=== PATIENT | female | born 1960 | race Caucasian/White ===

== ENCOUNTER 2020-10-04 09:46 | Emergency (ER) | payer BC ==
--- NOTE | 2020-10-04 10:23 | RAD REPORT ---
EXAM DESCRIPTION: RAD - Chest Single View - 10/04/2020 10:11 am CLINICAL HISTORY: CHEST PAIN Chest pain. COMPARISON: CHEST SINGLE VIEW dated 08/24/2010; CHEST SINGLE VIEW dated 04/03/2010; CHEST SINGLE VIEW dated 04/02/2010; CHEST SINGLE VIEW dated 03/31/2010 FINDINGS: Portable technique limits examination quality. Mild interstitial pulmonary edema is seen. The heart is normal in size. Right axillary consuelo dissecti on clips. IMPRESSION: Mild interstitial pulmonary edema.
--- NOTE | 2020-10-04 10:42 | RAD REPORT ---
EXAM DESCRIPTION: CT - Angio Aorta For Dissection - 10/04/2020 10:18 am CLINICAL HISTORY: Chest pain radiating to the back. scapular pain;Chest pain COMPARISON: PET CTSKULL THIGH dated 03/21/2010; Thorax W/ Con dated 09/23/2016; Brain W/Wo Cont dated 10/30/2016 TECHNIQUE: CT angiography of the aorta was performed with MIPs. All CT scans are performed using dose optimization technique as appropriate and may include automated exposure control or mA/KV adjustment according to patient size. FINDINGS: A left aortic arch is present with normal branching pattern of the great vessels.There is crescentic intermediate density seen involving the descending thoracic aorta to the level of the diap hragm. This is more confluent and extensive than typically seen with mural thrombus and is suspected to represent a thrombosed dissection. This is also noted to be a new finding since the 2017 comparati ve study. No abdominal aortic aneurysm or dissection seen. No significant stenosis at the origin of t he visceral arteries are renal arteries. No evidence of pulmonary embolism. Mild diffuse COPD is present. Linear atelectasis is present in both lung bases. Postsurgical changes are seen right upper lung. The liver demonstrates no focal mass or biliary dilatation.The spleen, pancreas, kidneys are within n ormal limits. Right adrenal mass measuring 17 mm noted, slightly increased since 2017 at which time i t measured 13 mm. No left adrenal lesion. No bowel obstruction, free fluid or abscess.Sigmoid diverticulosis is present without diverticulitis. No pathologic enlarged lymphadenopathy identified.The appendix is not identified as a discrete struct ure, however, no secondary findings of appendicitis are identified. No fracture or worrisome bone lesion seen. 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 There is no evidence of aortic flow escalera itation seen.
[2020-10-04 10:44] LABS: Absolute Lymphocytes (CBC) 3.5 K/uL (0.7-4.9); Hematocrit 43.5 % (36.0-45.0); Lymphocytes % 27.8 % (15.3-44.8); MPV 9.3 fL (7.6-11.3); RBC Red Blood Cell Count 4.79 M/uL (3.86-4.86)
[2020-10-04 10:45] LABS: Protime INR 0.95
[2020-10-04 11:02] LABS: ALT/SGPT 33 U/L (12-78); AST/SGOT 21 U/L (15-37); Albumin 3.8 g/dL (3.4-5.0); Alkaline Phosphatase 180 U/L (45-117); BUN Blood Urea Nitrogen 10 mg/dL (7-18); Bicarbonate 25 mmol/L (21-32); Bilirubin Direct < 0.1 mg/dL (0-0.2); Bilirubin Total 0.3 mg/dL (0.2-1.0); Glucose Level 140 mg/dL (74-106); NT PRO-BNP 145 pg/mL (<125); Potassium 3.9 mmol/L (3.5-5.1); Protein, Total 7.8 g/dL (6.4-8.2); Sodium Level 139 mmol/L (136-145); Troponin (Emerg Dept Use Only) < 0.02 ng/mL (0.0-0.045)
[2020-10-04] MEDS ORDERED: FENTANYL CITR 100 MCG/2 ML ONE (11:10)
[2020-10-04] MEDS ORDERED: LABETALOL 20 MG/4ML SYRINGE IV ONE ×3 (11:11→12:30)
--- NOTE | 2020-10-04 11:11 | EDPHYS ---
Physician Documentation [facility] Name: Ynes Crowe Age: 59 yrs Sex: Female : 1960 Arrival Date: 10/04/2020 Time: 09:52 Bed 20 Private MD: ED Physician Javid Schilling HPI: 10/04 09:55 This 59 yrs old Female presents to ER via Unassigned with complaints of chest rn pain, back pain. 09:55 The patient or guardian reports chest pain that is located primarily in the substernal rn area. Onset: just prior to arrival. The pain radiates to back. Associated signs and symptoms: Pertinent positives: diaphoresis, Pertinent negatives: abdominal pain, dizziness, headache, lower extremity pain, lower extremity swelling, palpitations, recent travel, shortness of breath, syncope, vomiting. The chest pain is described as a pressure, squeezing. Duration: The patient or guardian reports a single episode, that is still ongoing. Modifying factors: The symptoms are alleviated by narcotic pain medication, Fentanyl. the symptoms are aggravated by nothing. Severity of pain: At its worst the pain was severe in the emergency department the pain has improved. The patient has not experienced similar symptoms in the past. The patient has not recently seen a physician. Reports mid scapular back pain, some chest pain, began suddenly at home, feels like "someone is squeezing me from the inside". No trauma. No fever. felt fine when woke up. NO known cardiac problems. No abd pain. NO focal neuro complaints. Given aspirin/nitro/fentanyl by EMS with some improvement, states feels much better. No known hx of DVT/pE. . Historical: - Allergies: 10:01 Latex, Natural Rubber; jd3 - Home Meds: 10:01 None [Active]; jd3 - PMHx: 10:01 lung CA; jd3 - PSHx: 10:01 lung sx; jd3 - Immunization history:: Adult Immunizations up to date, Client reports receiving the 2nd dose of the Covid vaccine. - Social history:: Smoking status: Patient/guardian denies using tobacco, but has a distant history of tobacco abuse. - Family history:: not pertinent. - Hospitalizations: : No recent hospitalization is reported. ROS: 09:55 Constitutional: Negative for fever, chills, and weight loss, Eyes: Negative for injury, rn pain, redness, and discharge, Neck: Negative for injury, pain, and swelling, Cardiovascular: Negative for palpitations, and edema, Respiratory: Negative for shortness of breath, cough, wheezing, and pleuritic chest pain, Abdomen/GI: Negative for abdominal pain, nausea, vomiting, diarrhea, and constipation, Back: + mid upper back pain : Negative for injury, bleeding, discharge, and swelling, MS/Extremity: Negative for injury and deformity, Skin: Negative for injury, rash, and discoloration, Neuro: Negative for headache, weakness, numbness, tingling, and seizure. Exam: 09:55 Constitutional: This is a well developed, well nourished patient who is awake, alert, rn and in no acute distress. Head/Face: Normocephalic, atraumatic. Neck: Trachea midline, no masses palpated, and no cervical lymphadenopathy. Supple, full range of motion without nuchal rigidity, or vertebral point tenderness. No Meningismus. Cardiovascular: Regular rate and rhythm. No pulse deficits. Respiratory: No increased work of breathing, no retractions or nasal flaring. Abdomen/GI: soft, non-tender Back: No spinal tenderness. No costovertebral tenderness. Full range of motion. Skin: Warm, dry with normal turgor. Normal color with no rashes, no lesions, and no evidence of cellulitis. MS/ Extremity: Pulses equal, no cyanosis. Neurovascular intact. Full, normal range of motion. Equal circumference. Neuro: Awake and alert, GCS 15, oriented to person, place, time, and situation. Cranial nerves II-XII grossly intact. Motor strength 5/5 in all extremities. Sensory grossly intact. Vital Signs: 10:01 BP 166 / 95; Pulse 106; Resp 18 S; Temp 98.3(O); Pulse Ox 90% on R/A; Weight 87.09 kg jd3 (R); Height 5 ft. 7 in. (170.18 cm) (R); Pain 5/10; 10:01 Pulse Ox 94% on 2 lpm NC; jd3 11:05 BP 173 / 98; Pulse 83; Pulse Ox 90% on 2 lpm NC; Pain 8/10; ap3 11:31 BP 167 / 94; Pulse 80; Pulse Ox 95% on R/A; Pain 5/10; ap3 12:05 BP 166 / 89; Pulse 87; Resp 20; Pulse Ox 95% on R/A; Pain 5/10; ap3 12:30 BP 168 / 91 (auto/); Pulse 82; Resp 18; Pulse Ox 100% 2 lpm ; ap3 10:01 Body Mass Index 30.07 (87.09 kg, 170.18 cm) jd3 MDM: 09:52 Patient medically screened. rn 10:55 ED course: Pt with descending thoracic aortic dissection, BP increased recently, will rn dose with labetalol for BP and HR control, more pain meds ordered and given, arranging transfer to [facility] for ICU care and medical management. . 11:08 Differential diagnosis: acute myocardial infarction, acute pericarditis, anxiety, rn coronary artery disease thoracic aortic disection. The patient was not given aspirin in the Emergency Department. Administered by EMS. Data reviewed: vital signs, nurses notes, lab test result(s), EKG, radiologic studies, CT scan, plain films, and as a result, I will admit patient. Counseling: I had a detailed discussion with the patient and/or guardian regarding: the historical points, exam findings, and any diagnostic results supporting the discharge/admit diagnosis, lab results, radiology results, the need for further work-up and treatment in the hospital. Response to treatment: the patient's symptoms have mildly improved after treatment, and as a result, I will admit patient. Admission orders: after a detailed discussion of the patient's condition and case, the admit orders are written by me. ED course: Accepted for tranfer to [facility] CVICU. 11:21 ED course: BP 155/93, HR 84, another 5mg labetalol ordered. . rn 10/04 09:54 Order name: Basic Metabolic Panel rn 10/04 09:54 Order name: CBC with Diff rn 10/04 09:54 Order name: LFT's rn 10/04 09:54 Order name: NT PRO-BNP rn 10/04 09:54 Order name: PT-INR rn 10/04 09:54 Order name: Troponin (emerg Dept Use Only) rn 10/04 10:38 Order name: CREATININE WHOLE BLOOD; Complete Time: 10:59 EDMS 10/04 10:49 Order name: CBC with Automated Diff; Complete Time: 10:59 [facility] 10/04 10:50 Order name: Protime (+INR); Complete Time: 10:59 EDOH 10/04 10:58 Order name: COVID-19 : Document "Date of Symptom Onset" if Symptomatic. bd 10/04 11:03 Order name: Basic Metabolic Panel EDOH 10/04 11:03 Order name: Liver (Hepatic) Function EDOH 10/04 11:03 Order name: Troponin (Emerg Dept Use Only) EDOH 10/04 11:03 Order name: NT PRO-BNP EDOH 10/04 09:54 Order name: XRAY Chest (1 view) 10/04 09:54 Order name: EKG; Complete Time: 09:55 rn 10/04 09:54 Order name: Cardiac monitoring; Complete Time: 09:55 rn 10/04 09:54 Order name: EKG - Nurse/Tech; Complete Time: 09:55 rn 10/04 09:54 Order name: IV Saline Lock; Complete Time: 09:55 rn 10/04 09:54 Order name: CT Aorta for Dissection 10/04 10:23 Order name: RAD; Complete Time: 10:59 EDOH 10/04 10:42 Order name: CT; Complete Time: 10:59 EDOH 10/04 11:10 Order name: CORONAVIRUS [facility] 10/04 11:49 Order name: SARS-COV-2 RT PCR EDOH 10/04 09:54 Order name: Labs collected and sent; Complete Time: 10:04 rn 10/04 09:54 Order name: O2 Per Protocol; Complete Time: 09:56 rn 10/04 09:54 Order name: O2 Sat Monitoring; Complete Time: 09:56 rn Administered Medications: 11:02 Drug: Labetalol 10 mg Route: IVP; Infused Over: 2 mins; Site: right antecubital; ap3 11:46 Follow up: Response: No adverse reaction ap3 11:02 Drug: fentaNYL (PF) 50 mcg Route: IVP; Site: right antecubital; ap3 11:46 Follow up: Response: No adverse reaction; RASS: Alert and Calm (0) ap3 11:26 Drug: Labetalol 5 mg Route: IVP; Site: right antecubital; ap3 11:45 Follow up: Response: No adverse reaction ap3 11:45 Drug: morphine 4 mg {Note: RASS: pt is awake and alert. .} Route: IVP; Site: right ap3 antecubital; 12:06 Follow up: Response: Pain is decreased ap3 12:16 Drug: Labetalol 5 mg Route: IVP; Site: right antecubital; ap3 12:30 Follow up: BP 168 / 91 Left Arm Auto; Pulse 82 bpm; Resp 18 bpm; Pulse Ox 100% 2 lpm; ap3 Response: No adverse reaction 12:36 Drug: Dilaudid (HYDROmorphone) 1 mg {Note: PT AWAKE AND ALERT.} Route: IVP; Site: right ap3 antecubital; 13:00 Follow up: Response: No adverse reaction; RASS: Alert and Calm (0) ap3 Disposition: 11:08 Critical Care:. rn Disposition: 10/04/20 11:10 Transfer ordered to [facility]. Diagnosis is Dissection of thoracic aorta. - Reason for transfer: Higher level of care. - Accepting physician is Dr. Way. - Condition is Fair. - Problem is new. - Symptoms have improved. Critical care time excluding procedures: 11:08 Critical care time: Bedside Care: 25 minutes, Consultation: 5 minutes. Total time: 30 rn minutes Signatures: Dispatcher [employer] EDMS Javid Schilling MD MD rn Davies, Jonathon, RN RN jd3 Prokisch, Amanda, RN RN ap3 Corrections: (The following items were deleted from the chart) 13:01 11:10 10/04/2020 11:10 Transfer ordered to [facility]. ap3 Diagnosis is Dissection of thoracic aorta. Reason for transfer: Higher level of care. Accepting physician is Dr. Way. Condition is Fair. Problem is new. Symptoms have improved. rn
--- NOTE | 2020-10-04 11:11 | ER ---
Nurse's Notes [facility] Name: Ynes Crowe Age: 59 yrs Sex: Female : 1960 Arrival Date: 10/04/2020 Time: 09:52 Bed 20 Private MD: Diagnosis: Dissection of thoracic aorta Presentation: 10/04 09:56 Chief complaint: EMS states: "upon our arrival the pt had audible cries of pain from jd3 the other room to her mid back with shortness of breath. we treated it as chest pain and did a 12 lead. gave 324 of aspirin, nitro, and a total of 100 mcg of fentanyl over the course of the ride to knock the pain from a 10/10 to a 5/10. pt's blood pressure was 200's systolics down to 140's systolics. 20 G to her right AC. pt reports feeling better after interventions.". Coronavirus screen: At this time, the client does not indicate any symptoms associated with coronavirus-19. Ebola Screen: Patient negative for fever greater than or equal to 101.5 degrees Fahrenheit, and additional compatible Ebola Virus Disease symptoms. Initial Sepsis Screen: Does the patient meet any 2 criteria? No. Patient's initial sepsis screen is negative. Does the patient have a suspected source of infection? No. Patient's initial sepsis screen is negative. Risk Assessment: Do you want to hurt yourself or someone else? Patient reports no desire to harm self or others. Onset of symptoms was October 04, 2020. 09:56 Method Of Arrival: EMS: [facility] jd3 09:56 Acuity: MARY 3 jd3 11:09 Acuity: MARY 2 ap3 Historical: - Allergies: 10:01 Latex, Natural Rubber; jd3 - Home Meds: 10:01 None [Active]; jd3 - PMHx: 10:01 lung CA; jd3 - PSHx: 10:01 lung sx; jd3 - Immunization history:: Adult Immunizations up to date, Client reports receiving the 2nd dose of the Covid vaccine. - Social history:: Smoking status: Patient/guardian denies using tobacco, but has a distant history of tobacco abuse. - Family history:: not pertinent. - Hospitalizations: : No recent hospitalization is reported. Screenin:11 Abuse screen: Denies threats or abuse. Nutritional screening: No deficits noted. ap3 Tuberculosis screening: No symptoms or risk factors identified. Fall Risk No fall in past 12 months (0 pts). No secondary diagnosis (0 pts). IV access (20 points). Ambulatory Aid- None/Bed Rest/Nurse Assist (0 pts). Gait- Normal/Bed Rest/Wheelchair (0 pts) Mental Status- Oriented to own ability (0 pts). Total Page Fall Scale indicates No Risk (0-24 pts). Assessment: 10:06 General: Appears uncomfortable, Behavior is calm, cooperative, appropriate for age. ap3 Pain: Complains of pain in thoracic area Pain currently is 5 out of 10 on a pain scale. Pain began suddenly this morning Current management is with medication administered by EMS. Neuro: Level of Consciousness is awake, alert, obeys commands, Oriented to person, place, time, situation. Cardiovascular: Capillary refill < 3 seconds. Respiratory: Airway is patent Respiratory effort is even, unlabored, Respiratory pattern is regular, symmetrical. GI: No signs and/or symptoms were reported involving the gastrointestinal system. : No signs and/or symptoms were reported regarding the genitourinary system. EENT: No signs and/or symptoms were reported regarding the EENT system. Derm: No signs and/or symptoms reported regarding the dermatologic system. Musculoskeletal: No signs and/or symptoms reported regarding the musculoskeletal system. 11:04 General: Appears uncomfortable, Behavior is cooperative, anxious. Pain: Complains of ap3 pain in thoracic area Pain currently is 8 out of 10 on a pain scale. Alleviated by medications, Noted to be restless, Also complains of nausea. 12:11 Reassessment: report given to [employer] [facility]. ap3 12:26 Reassessment: Reassessment: report given to [facility] receiving nurse. ap3 Vital Signs: 10:01 BP 166 / 95; Pulse 106; Resp 18 S; Temp 98.3(O); Pulse Ox 90% on R/A; Weight 87.09 kg jd3 (R); Height 5 ft. 7 in. (170.18 cm) (R); Pain 5/10; 10:01 Pulse Ox 94% on 2 lpm NC; jd3 11:05 BP 173 / 98; Pulse 83; Pulse Ox 90% on 2 lpm NC; Pain 8/10; ap3 11:31 BP 167 / 94; Pulse 80; Pulse Ox 95% on R/A; Pain 5/10; ap3 12:05 BP 166 / 89; Pulse 87; Resp 20; Pulse Ox 95% on R/A; Pain 5/10; ap3 12:30 BP 168 / 91 (auto/); Pulse 82; Resp 18; Pulse Ox 100% 2 lpm ; ap3 10:01 Body Mass Index 30.07 (87.09 kg, 170.18 cm) jd3 ED Course: 09:52 Patient arrived in ED. rn 09:52 Javid Schilling MD is Attending Physician. rn 09:54 Jeri Andres, NEGRITO is Primary Nurse. ap3 10:00 Triage completed. jd3 10:00 Maintain EMS IV. Dressing intact. Good blood return noted. Site clean \\T\\ dry. Gauge \\T\\ david 3 site: 20 G to the right AC. 10:02 Arm band placed on. jd3 10:03 Basic Metabolic Panel Sent. ap3 10:03 CBC with Diff Sent. ap3 10:03 LFT's Sent. ap3 10:03 NT PRO-BNP Sent. ap3 10:03 PT-INR Sent. ap3 10:04 Troponin (emerg Dept Use Only) Sent. ap3 10:05 X-ray at the bedside. ap3 10:11 Patient has correct armband on for positive identification. Allergy band placed. Bed in ap3 low position. Call light in reach. Side rails up X 1. Adult w/ patient. telemetry monitor on. Pulse ox on. NIBP on. Door closed. 11:09 Inserted saline lock: 20 gauge in left antecubital area, using aseptic technique. jd3 11:26 CORONAVIRUS Sent. ap3 12:58 Patient transferred, IV remains in place. ap3 12:58 No provider procedures requiring assistance completed. ap3 Administered Medications: 11:02 Drug: Labetalol 10 mg Route: IVP; Infused Over: 2 mins; Site: right antecubital; ap3 11:46 Follow up: Response: No adverse reaction ap3 11:02 Drug: fentaNYL (PF) 50 mcg Route: IVP; Site: right antecubital; ap3 11:46 Follow up: Response: No adverse reaction; RASS: Alert and Calm (0) ap3 11:26 Drug: Labetalol 5 mg Route: IVP; Site: right antecubital; ap3 11:45 Follow up: Response: No adverse reaction ap3 11:45 Drug: morphine 4 mg {Note: RASS: pt is awake and alert. .} Route: IVP; Site: right ap3 antecubital; 12:06 Follow up: Response: Pain is decreased ap3 12:16 Drug: Labetalol 5 mg Route: IVP; Site: right antecubital; ap3 12:30 Follow up: BP 168 / 91 Left Arm Auto; Pulse 82 bpm; Resp 18 bpm; Pulse Ox 100% 2 lpm; ap3 Response: No adverse reaction 12:36 Drug: Dilaudid (HYDROmorphone) 1 mg {Note: PT AWAKE AND ALERT.} Route: IVP; Site: right ap3 antecubital; 13:00 Follow up: Response: No adverse reaction; RASS: Alert and Calm (0) ap3 Outcome: 11:10 ER care complete, transfer ordered by . rn 12:57 Transferred by helicopter to [facility]. ap3 12:57 Condition: stable 12:57 Instructed on the need for transfer. 13:01 Patient left the ED. ap3 Signatures: Javid Schilling MD MD rn Davies, Jonathon, RN RN jd3 Prokisch, Amanda, RN RN ap3 Corrections: (The following items were deleted from the chart) 11:11 11:09 Maintain EMS IV. Dressing intact. Good blood return noted. Site clean \\T\\ dry. jd3 Gauge \\T\\ site: 20 G right AC. jd3 12:26 12:26 Reassessment: report given to life flight ap3 ap3 12:27 12:26 Reassessment: ap3 ap3 13:02 12:57 critical ap3 ap3
[2020-10-04] MEDS ORDERED: MORPHINE 4 MG/ML SYR ONE (12:00)
[2020-10-04] MEDS ORDERED: HYDROMORPHONE HCL 1 MG/ML INJ ONE (12:52)
[2020-10-04 13:27] VITALS: TEMP 98.3
[2020-10-04 13:32] VITALS: BP 168/91; O2SAT 100
--- NOTE | 2020-10-04 16:08 | EKG ---
Test Date: 2020-10-04 Test Time: 10:45:50 [employer]: ALP MEASUREMENT RESULTS: Intervals: Rate: 84 GA: 192 QRSD: 84 QT: 400 QTc: 472 [place]: P: 73 GA: 192 QRS: -13 T: 75 INTERPRETIVE STATEMENTS: Normal sinus rhythm Minimal voltage criteria for LVH, may be normal variant Cannot rule out Inferior infarct, age undetermined Abnormal ECG Compared to ECG 08/24/2010 15:42:02 Left ventricular hypertrophy now present Sinus tachycardia no longer present Myocardial infarct finding still present Electronically Signed On 10-04-20 16:06:48 CDT by Shahid Johnson
== END 2020-10-04 13:01 | disposition short-term general hospital (02) ==
LOC: ER 09:46
DX: I71.01 Dissection of thoracic aorta (principal); Z20.822 Contact with and (suspected) exposure to COVID-19; Z85.118 Personal history of other malignant neoplasm of bronchus and lung; Z91.040 Latex allergy status; Z91.048 Other nonmedicinal substance allergy status
CPT/HCPCS: 93005; 85025; 80048; 36415; 85610; 82565; 80076; 84484; 83880; 71275; 74175; 71045; U0003; Q9967; J3010; J1170; 96374; 96375; 99285

== ENCOUNTER 2022-01-17 13:01 | Day surgery (SDC) | payer BC ==
--- NOTE | 2022-01-16 11:52 | RAD REPORT ---
EXAM DESCRIPTION: Kaleb Todd And Mikael (2 Views)01/16/2022 11:43 am CLINICAL HISTORY: Preop/hypertension COMPARISON: 2020 FINDINGS: The lungs appear clear of acute infiltrate. The heart is normal size Aortic stent in place IMPRESSION: No acute abnormalities displayed
[2022-01-16 11:53] LABS: Absolute Lymphocytes (CBC) 3.4 K/uL (0.7-4.9); Hematocrit 43.8 % (36.0-45.0); Lymphocytes % 27.1 % (15.3-44.8); MCV 93.9 fL (80-100); MPV 8.8 fL (7.6-11.3); RBC Red Blood Cell Count 4.66 M/uL (3.86-4.86)
[2022-01-16 11:57] LABS: Protime INR 0.95
[2022-01-16 12:07] LABS: SARS-CoV-2 Antigen Rapid Res Negative (Negative)
[~2022-01-17 13:01] MED LIST: HEPA 1000U/500MLS 2,000 UNIT/1,000 ML BAG IV ONE
[2022-01-17] MEDS ORDERED: NA CHLORIDE 0.9% 500 ML ONE (13:29)
[2022-01-17] MEDS ORDERED: FENTANYL CITR 100 MCG/2 ML ONE (15:33)
[2022-01-17] MEDS ORDERED: MIDAZOLAM HCL 2 MG/2 ML INJ ONE (15:33)
[2022-01-17] MEDS ORDERED: VERAPAMIL HCL 10 MG/4 ML VIAL IV ONE (15:33)
[2022-01-17] MEDS ORDERED: HEPARIN 5000 UNIT/ML 1 ML VIAL ONE (15:33)
[2022-01-17] MEDS ORDERED: ATROPINE SULF 1 MG/10 ML SYR IV ONE (15:34)
[2022-01-17] MEDS ORDERED: HEPARIN 10,000 UNIT/10 ML VIAL IV ONE (15:34)
[2022-01-17] MEDS ORDERED: NITROGLYCERIN 100 MCG/ML SYR (for cath lab use only) IV ONE (15:34)
[2022-01-17 17:32] VITALS: BP 134/77; O2SAT 97
--- NOTE | 2022-01-18 03:51 | OP ---
Date of Procedure: 01/17/2022 Surgeon: MARIAMA FREDERICK Procedure Performed: Peripheral aortogram with runoff and selective peripheral angiogram. Indication: Severe pain, lower extremities with known history of acute peripheral vascular disease. Access: Right radial artery, 6-Tuvaluan, closed with TR band. Complications: None. Bleeding: Less than 10 mL. Anesthesia: Total sedation time was 35 minutes, used fentanyl and Versed. Description Of Procedure: After risks, benefits, and alternatives were explained, the patient agreed to procedure and signed informed consent. [facility] prepped and draped in usual sterile fashion. Then, I accessed right radial artery using pedi atric micropuncture kit, placed a 6-Tuvaluan Slender sheath and took 5-Tuvaluan long pigtail catheter int o the distal aorta. I performed distal aortogram runoff and then did selective peripheral angiogram of the right side, and then removed the catheter and the sheath, placed TR band with good hemostasis. Findings: 1.Distal aorta is patent. 2.Right common iliac, external and internal iliac arteries are all patent. The right femoral artery and the right SFA are patent. Distal SFA on the right has about 20% stenosis in multiple areas. Th en, 3-vessel runoff; they are patent with mild diffuse disease. 3.Left common iliac has mid segment 70% stenosis, but it is a large vessel, so the lumen is still la rge. Then, the common femoral artery on the left is widely patent. Then, the SFA has multiple areas of 20% to 30% stenosis and 3-vessel runoff below the knee, also with mild diffuse disease; however, there is a good blood flow all the way to the toes. 4.Bilateral profunda are patent. Conclusion: Moderate left common iliac artery stenosis as outlined above. Otherwise, mild periphera l vascular disease. Plan: Medical management for now and observe with serial ultrasounds. If it gets worse, then we jerome l plan for balloon angioplasty of left common iliac at a later time. SR/MODL Voice ID: [id number] Report ID: [id number]
== END 2022-01-17 17:47 | disposition home or self-care (01) ==
LOC: CCL 13:01
PROVIDERS: ATTEND Internal Medicine
DX: I70.203 Unspecified atherosclerosis of native arteries of extremities, bilateral legs (principal); I65.29 Occlusion and stenosis of unspecified carotid artery; I10 Essential (primary) hypertension; E78.5 Hyperlipidemia, unspecified; Z91.040 Latex allergy status; Z87.891 Personal history of nicotine dependence; Z79.82 Long term (current) use of aspirin; Z79.899 Other long term (current) drug therapy; Z20.822 Contact with and (suspected) exposure to COVID-19
CPT/HCPCS: 85025; 80048; 36415; 85610; 85730; 71046; 36200; 75630; 87811; C1893; J1644 ×2; J7040; J2250; J3010

== ENCOUNTER 2024-09-15 18:46 | Observation (INO) | payer BC ==
[2024-09-15] MEDS ORDERED: LEVALBUTEROL 1.25 MG/3 ML NEB ONE ×2 (19:26→22:43)
[2024-09-15 19:35] LABS: Absolute Basophils 0.1 K/uL (0-0.5); Absolute Eosinophils 0.4 K/uL (0-0.5); Absolute Lymphocytes (CBC) 2.6 K/uL (0.7-4.9); Absolute Monocytes 0.8 K/uL (0.1-1.3); Absolute Neutrophil 13.2 K/uL (1.8-8.0); Basophils % 0.9 % (0-1.3); Eosinophils % 2.1 % (0-4.4); Hematocrit 45.5 % (36.0-45.0); Hemoglobin 14.8 g/dL (12.0-15.0); MCH 30.5 pg (27.0-35.0); MCHC 32.5 g/dL (32.0-36.0); MCV 93.8 fL (80-100); MPV 8.3 fL (7.6-11.3); Monocytes % 4.6 % (3.3-12.3); Neutrophils % 77.4 % (41.7-73.7); Nucleated RBC Absolute Count 0.2 (0-0); Nucleated Red Blood Cells % 0.9 % (0-0); Platelets 246 thou/uL (152-406); RBC Red Blood Cell Count 4.85 M/uL (3.86-4.86); Red Cell Distribution Width 13.4 % (12.1-15.2)
[2024-09-15 19:39] LABS: PT Prothrombin Time 11.1 SECONDS (10-13.0); Protime INR 0.97
[2024-09-15 19:46] LABS: Albumin 3.7 g/dL (3.4-5.0); Albumin/Globulin Ratio 0.8 (1.1-1.8); Anion Gap 8.6 mEq/L (5.0-15.0); Bilirubin Total 0.3 mg/dL (0.2-1.0); Globulin 4.4 g/dL (2.3-3.5); Potassium 3.6 mEq/L (3.5-5.1); Protein, Total 8.1 g/dL (6.4-8.2)
[2024-09-15 19:54] LABS: Influenza A Ag Negative; Influenza B Ag Negative; SARS-CoV-2 Antigen Rapid Res Negative (Negative)
--- NOTE | 2024-09-15 21:17 | RAD REPORT ---
EXAMINATION: CTA CHEST PE CLINICAL INDICATION: Shortness of breath TECHNIQUE: 100 cc 370 Isovue administered intravenously. This examination was performed according to an angiographic protocol with 3D post-processing. This involves 3D reconstructions, MIPs, volume rendered images and/or shaded surface rendering. One or more of the following dose reduction techniqu es were used: Automated exposure control, adjustment of the mA and/or kV according to patient size, and/or iterative reconstruction. Unless otherwise specified, incidental findings do not require dedic ated imaging follow-up. [id number]. COMPARISON: 2013 CT abdomen and [address] FINDINGS: A pulmonary embolus is not seen. An aortic aneurysm not noted. A stent has been placed into the aortic arch/descending thoracic aorta. No dissection visualized. No pleural effusion. No pericardial effusion. Small lung nodules unchanged likely benign. Right adrenal nodules unchanged likely adenomas. No follow-up recommended IMPRESSION: No evidence of a pulmonary embolism
--- NOTE | 2024-09-15 21:18 | RAD REPORT ---
Procedure: Chest Single View HISTORY: Cough COMPARISON: 2021 FINDINGS: The lungs appear clear of acute infiltrate. No significant pleural effusion noted. The heart is borderline enlarged.. Thoracic aortic stent in place. IMPRESSION: No acute abnormality is displayed.
--- NOTE | 2024-09-15 21:48 | EDPHYS ---
Physician Documentation [facility] Name: Ynes Crowe Age: 63 yrs Sex: Female : 1960 Arrival Date: 09/15/2024 Time: 18:46 Bed 13 Private MD: ED Physician Rasta Guzman HPI: 09/15 19:46 This 63 yrs old Female presents to ER via EMS with complaints of shortness of breath. rn 19:46 The patient has shortness of breath at rest, with light activity. Onset: The rn symptoms/episode began/occurred yesterday. Duration: The symptoms are intermittent. The patient's shortness of breath is aggravated by coughing, light activity. Severity of symptoms: At their worst the symptoms were moderate in the emergency department the symptoms are unchanged. The patient has not experienced similar symptoms in the past. Patient reports cough, productive, associated with shortness of breath and wheezing. Reports inhaler at home helping but not resolving symptoms. Denies fever or chills. Given steroids and albuterol by EMS with improvement of symptoms. No history of DVT or PE. A few years ago had aortic dissection and status post stent without complications. Denies any chest pain. No abdominal pain or vomiting.. Historical: - Allergies: 18:57 Latex; ld1 - PMHx: 18:57 Lung CA; ld1 - Immunization history:: Adult Immunizations up to date. - Infectious Disease History:: Denies. - Social history:: Smoking status: unknown. - Family history:: not pertinent. - Hospitalizations: : No recent hospitalization is reported. ROS: 19:46 Constitutional: Negative for fever, chills, and weight loss, Cardiovascular: Negative rn for chest pain, palpitations, and edema, Respiratory: Positive for cough and shortness of breath Abdomen/GI: Negative for abdominal pain, nausea, vomiting, diarrhea, and constipation, MS/Extremity: Negative for injury and deformity, Neuro: Negative for headache, weakness, numbness, tingling, and seizure, Exam: 19:46 Constitutional: This is a well developed, well nourished patient who is awake, alert, rn and in no acute distress. Cardiovascular: Tachycardic, regular. No pulse deficits. Respiratory: Mild tachypnea, diffuse wheezing, no retractions, diminished at bases Abdomen/GI: Soft, non-tender MS/ Extremity: Pulses equal, no cyanosis. Neuro: Awake and alert, GCS 15 19:48 ECG was reviewed by the Attending Physician. rn Vital Signs: 19:05 Pulse 107; Resp 20; Temp 98.5(O); Pulse Ox 94% on R/A; kd3 19:30 BP 121 / 84; Pulse 102; Resp 20; Pulse Ox 93% on R/A; kd3 20:02 BP 127 / 104; Pulse 111; Resp 21; Pulse Ox 94% on R/A; kd3 20:51 BP 114 / 94; Pulse 101; Resp 19; Pulse Ox 93% on R/A; kd3 21:15 BP 128 / 108; Pulse 107; Resp 21; Pulse Ox 93% on R/A; kd3 22:49 BP 142 / 104; Pulse 104; Resp 20 S; Pulse Ox 95% on R/A; kd3 23:23 BP 117 / 90; Pulse 117; Resp 19; Pulse Ox 94% on R/A; kd3 MDM: 18:57 Medical Screening Exam initiated rn 21:48 Differential diagnosis: Pneumonia, COPD. Antibiotic administration: Levaquin given. rt Data reviewed: vital signs, nurses notes, lab test result(s), EKG, radiologic studies. Consideration of Admission/Observation Patient was admitted/placed on observation. Management of patient was discussed with the following: Hospitalist: Agrees to admit. I considered the following discharge prescriptions or medication management in the emergency department Medications were administered in the Emergency Department. See MAR. Independent interpretation of the following test(s) in the Emergency Department X-Ray: My interpretation is Right lower lobe pneumonia seen on interpretation of x-ray images. Care significantly affected by the following chronic conditions: Chronic Obstructive Pulmonary Disease. Counseling: I had a detailed discussion with the patient and/or guardian regarding the historical points, exam findings, and any diagnostic results supporting the discharge/admit diagnosis, lab results, radiology results, the need for further work-up and treatment in the hospital. Response to treatment: the patient's symptoms have markedly improved after treatment. 09/15 19:10 Order name: Blood Culture Adult (2) rn 09/15 19:10 Order name: CBC with Diff; Complete Time: 20:08 rn 09/15 19:10 Order name: CMP; Complete Time: 20:08 rn 09/15 19:10 Order name: Lactate w/ 2H reflex if indic.; Complete Time: 20:08 rn 09/15 19:10 Order name: Protime (+inr); Complete Time: 20:08 rn 09/15 19:10 Order name: Ptt, Activated; Complete Time: 20:08 rn 09/15 19:10 Order name: COVID-19 Ag + Flu A+B Ag; Complete Time: 20:08 rn 09/15 23:41 Order name: Lactate w/ 2H reflex if indic.; Complete Time: 07:55 EDMS 09/15 23:41 Order name: Urinalysis w/ reflexes EDMS 09/15 23:41 Order name: CBC with Automated Diff EDMS 09/15 23:41 Order name: CBC with Automated Diff; Complete Time: 07:55 EDMS 09/15 23:41 Order name: Comprehensive Metabolic Panel EDMS 09/15 23:41 Order name: Comprehensive Metabolic Panel; Complete Time: 07:55 EDMS 09/15 23:43 Order name: Procalcitonin; Complete Time: 07:55 EDMS 09/15 23:43 Order name: C-Reactive Protein; Complete Time: 07:55 EDMS 09/16 04:08 Order name: Manual Differential; Complete Time: 07:55 EDMS 09/16 05:37 Order name: Lactate w/ 2H reflex if indic.; Complete Time: 07:55 EDMS 09/15 19:10 Order name: Chest Single View XRAY; Complete Time: 21:18 rn 02 19:10 Order name: CT Chest For PE Angio; Complete Time: 21:18 rn 09/15 19:10 Order name: EKG; Complete Time: 19:10 rn 09/15 23:41 Order name: CONS Physician Consult EDMN 09/15 19:10 Order name: Accucheck; Complete Time: 20:02 rn 09/15 19:10 Order name: Cardiac monitoring; Complete Time: 19:29 rn 09/15 19:10 Order name: EKG - Nurse/Tech; Complete Time: 19:30 rn 09/15 19:10 Order name: IV Saline Lock - Large Bore; Complete Time: 19:30 rn 02 19:10 Order name: Labs collected and sent; Complete Time: 19:30 rn 09/15 19:10 Order name: O2 Per Protocol; Complete Time: 19:30 rn 09/15 19:10 Order name: O2 Sat Monitoring; Complete Time: 19:30 rn 09/15 19:10 Order name: Vital Signs; Complete Time: 19:30 rn EC:48 Rate is 102 beats/min. Rhythm is regular. QRS [place] is Normal. AR interval is normal. rn QRS interval is normal. QT interval is normal. No Q waves. T waves are Normal. No ST changes noted. Clinical impression: Sinus tachycardia. Interpreted by me. Reviewed by me. Administered Medications: 19:31 Drug: Levalbuterol Inhalation 1.25 mg Inhalation once Route: Inhalation; jb4 22:49 Follow up: Response: No adverse reaction kd3 22:49 Drug: Levalbuterol Inhalation 1.25 mg Inhalation once Route: Inhalation; kd3 09/16 02:00 Follow up: Response: No adverse reaction ha1 09/15 22:49 Drug: LevaQUIN IVPB 750 mg IVPB once Route: IVPB; Site: left antecubital; kd3 09/16 02:00 Follow up: Response: No adverse reaction; IV Status: Completed infusion ha1 09/15 22:49 Drug: NS 0.9% IV 1000 ml IV at 1000 ml once; to be given as a bolus over 60 minutes kd3 Route: IV; Rate: 1000 ml; Site: left antecubital; 09/16 02:00 Follow up: Response: No adverse reaction; IV Status: Completed infusion ha1 Disposition: 09/15 21:48 Critical Care:. rt Disposition Summary: 09/15/24 21:48 Hospitalization Ordered Notes: Hospitalization Status: Inpatient Admission rt Provider: Prashant Hood rt Condition: Stable rt Problem: new rt Symptoms: have improved rt Bed/Room Type: Standard rt Location: Telemetry/MedSurg (Inpatient)(09/16/24 11:43) bc6 Room Assignment: [facility](09/16/24 11:43) [facility] Diagnosis - Lobar pneumonia, unspecified organism rt - Sepsis, unspecified organism rt Forms: - Medication Reconciliation Form rt - SBAR form rt - Leadership Thank You Letter rt Critical care time excluding procedures: 21:48 Critical care time: Bedside Care: 30 minutes, Consultation: 5 minutes. Total time: 35 rt minutes Signatures: Dispatcher [employer] EDMS Javid Schilling MD MD rn Bryson, James, RN RN jb4 Su Tijerina RN RN ld1 Suzanne Clark, RN RN kd3 Shu Pearce RN RN vc1 Rasta Guzman MD MD rt [place] [id number] Jami Roblero RN ha1 Corrections: (The following items were deleted from the chart) 09/16 00:14 09/15 21:48 Telemetry/MedSurg (Inpatient) rt 1 09/16 00:14 04 21:48 rt vc1 09/16 11:01 00:14 [facility] ER HOLD vc1 6 11:01 00:14 ERHOLD- vc1 6 11:14 11:01 Telemetry/MedSurg (Inpatient) 6 6 11:14 11:01 212 6 6 11:43 11:14 [facility] ER HOLD 6 6 11:43 11:14 [facility]6
--- NOTE | 2024-09-15 21:48 | ER ---
Nurse's Notes [facility] Name: Ynes Crowe Age: 63 yrs Sex: Female : 1960 Arrival Date: 09/15/2024 Time: 18:46 Bed 13 Private MD: Diagnosis: Lobar pneumonia, unspecified organism;Sepsis, unspecified organism Presentation: 09/15 19:05 Chief complaint: EMS states: Patient presents with SOB, chest tightness and cough with kd3 thick clear phlegm. PT has a history of lung cancer. PT received and A\T\ A tx and 125 of Solu Medrol in route with reported improvement. PT's VSS. Ebola Screen: No symptoms or risks identified at this time. Initial Sepsis Screen: Does the patient meet any 2 criteria? No. Patient's initial sepsis screen is negative. Does the patient have a suspected source of infection? No. Patient's initial sepsis screen is negative. Risk Assessment: Do you want to hurt yourself or someone else? Patient reports no desire to harm self or others. Onset of symptoms was September 15, 2024. 19:05 Method Of Arrival: EMS: [facility] kd3 19:05 Acuity: MARY 3 kd3 09/16 04:17 Coronavirus screen: Client denies travel out of the [place] in the last 14 days. ha1 Triage Assessment: 09/15 19:05 General: Appears uncomfortable, Behavior is calm, cooperative. Neuro: Level of kd3 Consciousness is awake, alert, obeys commands, Oriented to person, place, time, situation. Respiratory: Airway is patent Trachea midline Respiratory effort is even, unlabored. Historical: - Allergies: 18:57 Latex; ld1 - PMHx: 18:57 Lung CA; ld1 - Immunization history:: Adult Immunizations up to date. - Infectious Disease History:: Denies. - Social history:: Smoking status: unknown. - Family history:: not pertinent. - Hospitalizations: : No recent hospitalization is reported. Screenin:31 [facility] ED Fall Risk Assessment (Adult) History of falling in the last 3 months, kd3 including since admission No falls in past 3 months (0 pts) Confusion or Disorientation No (0 pts) Intoxicated or Sedated No (0 pts) Impaired Gait No (0 pts) Mobility Assist Device Used No (0 pt) Altered Elimination No (0 pt) Score/Fall Risk Level 0 - 2 = Low Risk Oriented to surroundings. Abuse screen: Denies threats or abuse. Denies injuries from another. Nutritional screening: No deficits noted. Tuberculosis screening: No symptoms or risk factors identified. Assessment: 19:49 General: Appears uncomfortable, Behavior is calm, cooperative. Pain: Denies pain. kd3 Neuro: Level of Consciousness is awake, alert, obeys commands, Oriented to person, place, time, situation. Cardiovascular: Capillary refill < 3 seconds Patient's skin is warm and dry. Vital Signs: 19:05 Pulse 107; Resp 20; Temp 98.5(O); Pulse Ox 94% on R/A; kd3 19:30 BP 121 / 84; Pulse 102; Resp 20; Pulse Ox 93% on R/A; kd3 20:02 BP 127 / 104; Pulse 111; Resp 21; Pulse Ox 94% on R/A; kd3 20:51 BP 114 / 94; Pulse 101; Resp 19; Pulse Ox 93% on R/A; kd3 21:15 BP 128 / 108; Pulse 107; Resp 21; Pulse Ox 93% on R/A; kd3 22:49 BP 142 / 104; Pulse 104; Resp 20 S; Pulse Ox 95% on R/A; kd3 23:23 BP 117 / 90; Pulse 117; Resp 19; Pulse Ox 94% on R/A; kd3 ED Course: 18:57 Patient arrived in ED. ld1 18:57 Javid Schilling MD is Attending Physician. rn 19:03 Suzanne Clark RN is Primary Nurse. kd3 19:05 Arm band placed on. kd3 19:07 Triage completed. kd3 19:30 CBC with Diff Sent. kd3 19:30 CMP Sent. kd3 19:30 Lactate w/ 2H reflex if indic. Sent. kd3 19:30 Protime (+inr) Sent. kd3 19:30 Ptt, Activated Sent. kd3 19:30 COVID-19 Ag + Flu A+B Ag Sent. kd3 19:31 Patient has correct armband on for positive identification. kd3 19:42 Chest Single View XRAY In Process Unspecified. EDMS 19:49 Blood Culture Adult (2) Sent. kd3 19:49 Inserted saline lock: 20 gauge in left antecubital area, using aseptic technique. Blood kd3 collected. Flushed with 10 mL NS. 20:12 Attending Physician role handed off by Javid Schilling MD rt 20:12 Rasta Guzman MD is Attending Physician. rt 21:08 CT Chest For PE Angio In Process Unspecified. EDMS 21:47 Prashant Hood MD is Hospitalizing Provider. rt 09/16 02:00 Provided Education on: plan of care . ha1 02:00 No provider procedures requiring assistance completed. ha1 02:00 Patient admitted, IV remains in place. ha1 Administered Medications: 09/15 19:31 Drug: Levalbuterol Inhalation 1.25 mg Inhalation once Route: Inhalation; jb4 22:49 Follow up: Response: No adverse reaction kd3 22:49 Drug: Levalbuterol Inhalation 1.25 mg Inhalation once Route: Inhalation; kd3 09/16 02:00 Follow up: Response: No adverse reaction ha1 09/15 22:49 Drug: LevaQUIN IVPB 750 mg IVPB once Route: IVPB; Site: left antecubital; kd3 09/16 02:00 Follow up: Response: No adverse reaction; IV Status: Completed infusion ha1 09/15 22:49 Drug: NS 0.9% IV 1000 ml IV at 1000 ml once; to be given as a bolus over 60 minutes kd3 Route: IV; Rate: 1000 ml; Site: left antecubital; 09/16 02:00 Follow up: Response: No adverse reaction; IV Status: Completed infusion ha1 Medication: 09/15 19:49 VIS not applicable for this client. kd3 Outcome: 21:48 Decision to Hospitalize by Provider. rt 09/16 02:00 Admitted to ER Hold. [facility] ha1 Condition: stable Instructed on the need for admit, Demonstrated understanding of instructions, 12:28 Patient left the ED. ll1 Signatures: Dispatcher [employer] EDMS Javid Schilling MD MD rn Bryson, James, RN RN jb4 Anya Pehlps RN RN ll1 Su Tijerina RN RN veronica1 Suzanne Clark RN RN kd3 Jami Roblero RN RN ha1 Rasta Guzman MD MD rt
[2024-09-15] MEDS ORDERED: Levofloxacin 750mg IV 750 MG/150 ML BAG IV ONE (22:43)
[2024-09-15] MEDS ORDERED: NA CHLORIDE 0.9% 1,000 ML ONE (22:44)
[2024-09-15] MEDS ORDERED: ALPRAZOLAM 0.25 MG TABLET PO PRN (23:33)
[2024-09-15] MEDS ORDERED: ONDANSETRON 4 MG/2 ML VIAL IV PRN (23:33)
--- NOTE | 2024-09-15 23:40 | P.HP ---
Patient History Date of Service: 09/16/24 Reason for admission: Pneumonia History of Present Illness: 63-year-old with a past medical history of COPD, history of lung cancer, presenting with cough and shortness of breath secondary to pneumonia and COPD exacerbation. She states the cough began a few days ago accompanied with shortness of breath that began yesterday. She has been taking Mucinex and Benadryl. She states she had mild improvement in her phlegm. However there shortness of breath persisted. She states upon standing she feels very dizzy and unable to walk. At home she had no energy for being able to shower. She began to panic when the shortness of breath did not improved and she dialed 911. She states she has had a right lung lobectomy in the past due to cancer. She has been a smoker for more than 30 years about 1 pack/day. Her primary care physician is Dr. Daniels. 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 She denies any fevers and chills. She walks with a cane. She is not on home oxygen. Allergies latex Allergy (Verified 01/16/22 11:17) Hives/Rash Home Medications: Amlodipine Besylate 5 mg PO DAILY 01/16/22 Aspirin [Aspirin EC 81 MG] 81 mg PO BEDTIME 01/16/22 Cholecalciferol (Vitamin D3) [Vitamin D 1000 Iu Tab] 1,000 unit PO DAILY 01/16/22 Ibuprofen/Diphenhydramine HCl [Advil Pm Liqui-Gels] 1 each PO BEDTIME 01/16/22 Melatonin [Melatonin*] 3 mg PO BEDTIME 01/16/22 Metoprolol Tartrate [Lopressor] 25 mg PO BID 01/16/22 hydroCHLOROthiazide [Hydrodiuril] 25 mg PO DAILY 01/16/22 Gabapentin [Neurontin] 1,200 mg PO TID 09/15/24 Tramadol HCl 25 mg PO BID* PRN 09/15/24 Review of Systems 10-point ROS is otherwise unremarkable General: As per HPI Respiratory: Cough, Shortness of Breath Physical Examination - Physical Exam General: Alert, In no apparent distress HEENT: Atraumatic Neck: Supple Respiratory: Expiratory wheezes Cardiovascular: No edema Capillary refill: <2 Seconds Gastrointestinal: Normal bowel sounds Musculoskeletal: No clubbing Integumentary: No rashes Neurological: Normal speech Lymphatics: No axilla or inguinal lymphadenopathy - Studies Laboratory Data (last 24 hrs) 09/15/24 09/15/24 09/15/24 19:19 19:19 19:19 WBC 17.10 H Hgb 14.8 Hct 45.5 H Plt Count 246 PT 11.1 INR 0.97 APTT 38.0 H Sodium 140 Potassium 3.6 BUN 11 Creatinine 1.03 H Glucose 117 H Total Bilirubin 0.3 AST 24 ALT 43 Alkaline Phosphatase 146 H Assessment and Plan - Plan Community-acquired pneumonia COPD exacerbation History of lung Ca Hypertension Neuropathy Start Rocephin, azithromycin Procalcitonin and CRP pending Start DuoNebs, IV steroid, IV mag Consult Dr. Copeland with pulmonology As needed oxygen via nasal cannula Continue gabapentin as per home regimen CBC and BMP in the a.m. Continue home amlodipine, hydrochlorothiazide, metoprolol Imaging reviewed DVT prophylaxis with heparin - Advance Directives Does patient have a Living Will: No Does patient have a Durable POA for Healthcare: No
[2024-09-15] MEDS: MAGNESIUM SULFATE 1 gm IVPB 1 GM/100 ML BAG IV ONE (23:42)
[2024-09-15] MEDS ORDERED: IPRATROPIUM BROM 0.5MG/2.5ML ONE (23:58)
[2024-09-15] MEDS ORDERED: ALBUTEROL 2.5 MG/3 ML NEB SOL ONE (23:58)
[2024-09-16] MEDS: IPRATROPIUM BROM 0.5MG/2.5ML NEB SCH (00:12)
[2024-09-16] MEDS ORDERED: TRAMADOL HCL 50 MG TAB ONE ×2 (00:41→11:26)
[2024-09-16] MEDS: TRAMADOL HCL 50 MG TAB PO PRN (00:44)
[2024-09-16] MEDS ORDERED: TRAMADOL HCL 25 MG PO PRN (00:58)
[2024-09-16] MEDS: METHYLPREDNISOLONE 40 MG INJ IV SCH (01:00)
[2024-09-16] MEDS: HEPARIN 5000 UNIT/ML 1 ML VIAL SQ SCH (01:00)
[2024-09-16 01:25] VITALS: BMI 28.3
[2024-09-16] MEDS ORDERED: ACETAMINOPHEN 325 MG TABLET ONE (01:32)
[2024-09-16] MEDS ORDERED: METHYLPREDNISOLONE 40 MG INJ ONE ×2 (01:36→10:01)
[2024-09-16] MEDS ORDERED: HEPARIN 5000 UNIT/ML 1 ML VIAL ONE ×2 (01:36→10:01)
[2024-09-16] MEDS ORDERED: MAGNESIUM SULFATE 1 gm IVPB 1 GM/100 ML BAG IV ONE (01:36)
[2024-09-16] MEDS: ACETAMINOPHEN 325 MG TABLET PO PRN (01:40)
[2024-09-16 02:41] LABS: Absolute Basophils 0.1 K/uL (0-0.5); Absolute Lymphocytes (CBC) 0.7 K/uL (0.7-4.9); Absolute Monocytes 0.2 K/uL (0.1-1.3); Absolute Neutrophil 12.6 K/uL (1.8-8.0); Basophils % 0.6 % (0-1.3); Eosinophils % 0.1 % (0-4.4); Hematocrit 46.3 % (36.0-45.0); Hemoglobin 14.9 g/dL (12.0-15.0); Lymphocytes % 4.9 % (15.3-44.8); MCH 30.5 pg (27.0-35.0); MCHC 32.2 g/dL (32.0-36.0); MCV 94.5 fL (80-100); MPV 8.5 fL (7.6-11.3); Monocytes % 1.1 % (3.3-12.3); Neutrophils % 93.3 % (41.7-73.7); Platelets 247 thou/uL (152-406); Red Cell Distribution Width 13.8 % (12.1-15.2)
[2024-09-16 02:52] LABS: Albumin 3.5 g/dL (3.4-5.0); Albumin/Globulin Ratio 0.7 (1.1-1.8); Anion Gap 11.8 mEq/L (5.0-15.0); Bilirubin Total 0.3 mg/dL (0.2-1.0); Globulin 4.7 g/dL (2.3-3.5); Potassium 3.8 mEq/L (3.5-5.1); Protein, Total 8.2 g/dL (6.4-8.2)
[2024-09-16 04:07] LABS: Band Neutrophils 15 % (0-1); Differential Total Cells Count 100; Lymphocytes 12 % (15-42); Segmented Neutrophils 73 % (40-80)
[2024-09-16 04:08] LABS: Blood Morphology Comment NOT SEEN (NOT SEEN); Monocytes 0 % (0-10); Platelet Estimate ADEQ
[2024-09-16] MEDS: FLU (Fluarix Triv) TS24-25(6MOS UP)/PF 45 MCG/0.5 ML Syringe IM ONE (07:30)
[2024-09-16] MEDS ORDERED: ALBUTEROL 2.5 MG/3 ML NEB SOL ONE (08:17)
[2024-09-16] MEDS ORDERED: IPRATROPIUM BROM 0.5MG/2.5ML ONE (08:18)
[2024-09-16] MEDS: ALBUTEROL 2.5 MG/3 ML NEB SOL NEB SCH (08:30)
[2024-09-16] MEDS: GABAPENTIN 300 MG CAP PO SCH (09:00)
[2024-09-16] MEDS: METOPROLOL TAR 25 MG TAB PO SCH (09:00)
[2024-09-16] MEDS: hydroCHLOROthiazide 25 MG TAB PO SCH (09:00)
[2024-09-16] MEDS: AZITHROMYCIN 250 MG TAB PO SCH (09:00)
[2024-09-16] MEDS ORDERED: HOME MED 1 EA UNK (Gabapentin [Neurontin] 600 MG Tablet) PO SCH (09:00)
[2024-09-16] MEDS: AMLODIPINE 5 MG TAB PO SCH (09:00)
[2024-09-16] MEDS ORDERED: CEFTRIAXONE 1000 MG/VIAL ONE (10:00)
[2024-09-16] MEDS ORDERED: AMLODIPINE 5 MG TAB ONE (10:00)
[2024-09-16] MEDS ORDERED: METOPROLOL TAR 25 MG TAB ONE (10:00)
[2024-09-16] MEDS ORDERED: GABAPENTIN 300 MG CAP ONE (10:00)
[2024-09-16] MEDS: CEFTRIAXONE 1,000 MG in NA CHLORIDE 0.9% 50 ML IVPB SCH (10:00)
[2024-09-16] MEDS ORDERED: NA CHLORIDE 0.9% 50 ML ONE (10:01)
[2024-09-16] MEDS ORDERED: AZITHROMYCIN 250 MG TAB ONE (10:01)
[2024-09-16] MEDS ORDERED: hydroCHLOROthiazide 25 MG TAB ONE (10:01)
[2024-09-16 11:04] LABS: Specific Gravity 1.013 (1.005-1.030); Sqamous Epithelial None Seen /HPF (None Seen); Urine Bacteria None Seen /HPF (<20); Urine Bilirubin NEGATIVE (Negative); Urine Blood 1+ (Negative); Urine Clarity Clear (Clear); Urine Color Colorless (Yellow); Urine Culture Reflex Order NOT NEEDED; Urine Glucose 2+ (Negative); Urine Ketones NEGATIVE (Negative); Urine Microscopic Reflex YN ORDER UMIC; Urine Nitrite NEGATIVE (Negative); Urine Protein 2+ (Negative); Urine RBC <5 /HPF (None Seen); Urine Urobilinogen Normal (Normal); Urine WBC <5 /HPF (<5); Urine pH 7.5 (5.0-7.0)
[2024-09-16 12:48] VITALS: O2SAT 99
--- NOTE | 2024-09-16 15:59 | P.DS ---
Admission Date: 09/15/24 Discharge Date: 09/16/24 Disposition: ROUTINE DISCHARGE Reason for Admission: Pneumonia Brief History of Present Illness: 63-year-old with a past medical history of COPD, history of lung cancer status post lobectomy, presented with cough and shortness of breath. Patient denies any history of COPD. Patient reports she experienced dizziness and a panic episode with a shortness of breath. No reported fever or chills and no reported chest pain. She presented to the emergency department where CTA thorax and chest x-ray did not show any acute disease. She continues to smoke cigarettes. Patient was hospitalized for further management. Hospital Course: Diagnosis COPD exacerbation Acute infective bronchitis History of lung cancer Tobacco use Essential hypertension Patient hospitalized and treated for COPD exacerbation acute bronchitis with antibiotics, bronchodilators and IV steroids. Patient respiratory condition rapidly improved with treatment. She was evaluated by pulmonary Dr. Constantino. Chest imaging did not show any infiltrate. Dr. Copeland suspected underlying COPD given patient history of smoking and lobectomy, and recommended bronchodilator treatment at home and short course prednisone therapy. Patient respiratory condition has improved to baseline she is deemed stable for discharge. Vital Signs/Physical Exam: Temp Pulse Resp BP Pulse Ox 98.0 F 93 H 18 127/75 94 09/16/24 13:00 09/16/24 13:00 09/16/24 13:00 09/16/24 13:00 09/16/24 13:00 General: Alert, In no apparent distress, Oriented x3 HEENT: Mucous membr. moist/pink Neck: Supple, JVD not distended Respiratory: Clear to auscultation bilaterally, Normal air movement Cardiovascular: No edema, Regular rate/rhythm, Normal S1 S2 Gastrointestinal: Normal bowel sounds, Soft and benign, Non-distended Musculoskeletal: No swelling Integumentary: No rashes, No cyanosis Neurological: Normal strength at 5/5 x4 extr Laboratory Data at Discharge: WBC 13.50 thou/uL (4.3-10.9) H 09/16/24 02:22 Hgb 14.9 g/dL (12.0-15.0) 09/16/24 02:22 Hct 46.3 % (36.0-45.0) H 09/16/24 02:22 Plt Count 247 thou/uL (152-406) 09/16/24 02:22 PT 11.1 SECONDS (10-13.0) 09/15/24 19:19 INR 0.97 09/15/24 19:19 APTT 38.0 SECONDS (27.2-37.4) H 09/15/24 19:19 Sodium 139 mEq/L (136-145) 09/16/24 02:22 Potassium 3.8 mEq/L (3.5-5.1) 09/16/24 02:22 BUN 11 mg/dL (7-18) 09/16/24 02:22 Creatinine 1.34 mg/dL (0.55-1.02) H 09/16/24 02:22 Glucose 243 mg/dL (74-106) H 09/16/24 02:22 Total Bilirubin 0.3 mg/dL (0.2-1.0) 09/16/24 02:22 AST 23 U/L (15-37) 09/16/24 02:22 ALT 42 U/L (13-56) 09/16/24 02:22 Alkaline Phosphatase 149 U/L (45-117) H 09/16/24 02:22 Home Medications: Atorvastatin Calcium [Lipitor] 40 mg PO BEDTIME 09/16/24 Azithromycin Tab [Zithromax*] 250 mg PO DAILY #5 tab 09/16/24 Duloxetine HCl 60 mg PO DAILY 09/16/24 Gabapentin 1,200 mg PO Q8HR 09/16/24 Mometasone/Formoterol [Dulera 200 Mcg/5 Mcg Inhaler] 1 puff IH BID #1 ea 09/16/24 Nebivolol HCl 5 mg PO DAILY 09/16/24 Tramadol HCl [Ultram] 50 mg PO BID PRN 09/16/24 predniSONE [Deltasone] 20 mg PO BID #10 tab 09/16/24 New Medications: Mometasone/Formoterol [Dulera 200 Mcg/5 Mcg Inhaler] 1 puff IH BID #1 ea predniSONE [Deltasone] 20 mg PO BID #10 tab Azithromycin Tab [Zithromax*] 250 mg PO DAILY #5 tab Diet: AHA Activity: Ad lilly Followup: Abhishek Constantino MD [ACTIVE - CAN ADMIT] - 1-2 Weeks Baljit Daniels MD [Primary Care Provider] - 1-2 Weeks Time spent managing pt's care (in minutes): 27
[2024-09-16 16:28] VITALS: BP 103/66; TEMP 98.1
[2024-09-16] MEDS ORDERED: ASPIRIN EC 81 MG TAB PO SCH (21:00)
--- NOTE | 2024-09-17 10:13 | P.CNS ---
Date of Consult: 09/16/24 Chief Complaint: Cough congestion History of Present Illness: Patient is 63 years of age formal history of lung cancer that was resected was doing well does not use any bronchodilator former smoker admitted with a cold congestion started taking Mucinex yesterday patient also became little short of breath ended up in the hospital doing better today denies any fever or chills currently Allergies latex Allergy (Verified 01/16/22 11:17) Hives/Rash Home Medications: Atorvastatin Calcium [Lipitor] 40 mg PO BEDTIME 09/16/24 Azithromycin Tab [Zithromax*] 250 mg PO DAILY #5 tab 09/16/24 Duloxetine HCl 60 mg PO DAILY 09/16/24 Gabapentin 1,200 mg PO Q8HR 09/16/24 Mometasone/Formoterol [Dulera 200 Mcg/5 Mcg Inhaler] 1 puff IH BID #1 ea 09/16/24 Nebivolol HCl 5 mg PO DAILY 09/16/24 Tramadol HCl [Ultram] 50 mg PO BID PRN 09/16/24 predniSONE [Deltasone] 20 mg PO BID #10 tab 09/16/24 - Past Medical/Surgical History -: History of lung cancer -: Right lower lobe lobectomy - Social History Smoking Status: Unknown if ever smoked Review of Systems 10-point ROS is otherwise unremarkable Physical Examination Temp Pulse Resp BP Pulse Ox 98.1 F 90 16 103/66 96 09/16/24 16:00 09/16/24 16:00 09/16/24 16:00 09/16/24 16:00 09/16/24 16:00 General: Alert, Oriented x3 Respiratory: Clear to auscultation bilaterally Cardiovascular: No edema, Regular rate/rhythm, Normal S1 S2 Gastrointestinal: Normal bowel sounds, Soft and benign - Problems (1) COPD exacerbation Status: Acute Plan: Patient is 63 years of age no prior history of COPD although was a former heavy smoker until her lung cancer in 2010 that was resected has been doing well denies any dyspnea on exertion admitted with worsening cough congestion possibly underlying obstructive airways disease currently doing better labs reviewed chest x-ray is clear CT scan does not show any evidence of pulmonary embolism or lung cancer discussed with Dr. Salvador discharged home on an inhaled bronchodilator as needed follow-up with me in 2 to 4 weeks will need outpatient pulmonary function testing and possibly low-dose of prednisone
--- NOTE | 2024-09-17 13:30 | EKG ---
Test Date: 2024-09-15 Test Time: 19:28:14 Middleware Solutions Architect: MONIK MEASUREMENT RESULTS: Intervals: Rate: 102 SC: 188 QRSD: 84 QT: 384 QTc: 500 [place]: P: 84 SC: 188 QRS: -3 T: 81 INTERPRETIVE STATEMENTS: Sinus tachycardia Otherwise normal ECG Compared to ECG 10/04/2020 10:45:50 Sinus rhythm no longer present Left ventricular hypertrophy no longer present Myocardial infarct finding no longer present Electronically Signed On 09-17-24 13:19:59 CDT by Jamarcus Means
== END 2024-09-16 17:34 | disposition home health service (06) ==
LOC: ER 18:46 → ERHOLD 23:33 → INTOOBSV 23:33 → 2ND 09-16 12:10
PROVIDERS: ADMIT Family Medicine; ATTEND Internal Medicine
DX: J18.9 Pneumonia, unspecified organism (principal); J44.1 Chronic obstructive pulmonary disease with (acute) exacerbation; J20.9 Acute bronchitis, unspecified; R05.9 Cough, unspecified; R06.02 Shortness of breath; I10 Essential (primary) hypertension; G62.9 Polyneuropathy, unspecified; Z85.118 Personal history of other malignant neoplasm of bronchus and lung; Z91.040 Latex allergy status; Z87.891 Personal history of nicotine dependence; Z11.52 Encounter for screening for COVID-19
CPT/HCPCS: 36415; 71045; 71275; 80053; 81001; 83605; 84145; 85025; 85610; 85730; 86140; 87040; 87428; 93005; 94640; G0378; J0696; J1644; J2919; J3475; J7030; J7613; J7614; J7644; Q9967